=== PATIENT | female | born 1970 | race Caucasian/White ===

== ENCOUNTER → 2017-11-09 | Outpatient (CLI) | payer BC | LOC: MC.RAD 10-19 09:40 | DX: Z12.31 Encounter for screening mammogram for malignant neoplasm of breast (principal) ==

== ENCOUNTER → 2019-04-02 | Outpatient (CLI) | payer OTHER ==
[2019-04-02] VITALS (14 sets, daily range): BP systolic 120–140; BP diastolic 72–84; PULSE 87–98
[~2019-04-02] VITALS: Ht 162.6 cm; Wt 89.9 kg
[~2019-04-02] MED LIST: DESYREL 50MG50 MG PO; LEVOXYL0.025 MG PO; VITAMIN D31000 IU PO; ZOCOR 20MG20 MG PO; ZOLOFT 50MG50 MG PO
[2019-04-02 09:43] LABS: INR 1.1 (0.8-3.0)
--- NOTE | 2019-04-02 10:00 | NUR ---
pt to ct per ambulation. Pt positioned supine on CT table. Monitors applied. Warm blankets placed on pt.
--- NOTE | 2019-04-02 10:20 | NUR ---
pt having a lot of pain. Orders to give fent 25 mcg and versed 1 mg received.
--- NOTE | 2019-04-02 10:25 | NUR ---
Specimen obtained and placed in formalin by Dr Garcia. Specimen labeled.
--- NOTE | 2019-04-02 11:28 | NUR ---
Pt given sprite and muffin to eat. Tylenol also given. Pt reports pain at 6/10.
== END ==
LOC: COL.RAD 08:55
PROVIDERS: Internal Medicine
DX: R16.0 Hepatomegaly, not elsewhere classified (principal); C18.9 Malignant neoplasm of colon, unspecified
CPT/HCPCS: J2250; J3010

== ENCOUNTER → 2019-07-18 | Outpatient (CLI) | payer OTHER | LOC: MC.RAD 10:25 | DX: N63.10 Unspecified lump in the right breast, unspecified quadrant (principal) | CPT/HCPCS: G0279 ==

== ENCOUNTER → 2020-01-23 | Outpatient (CLI) | payer OTHER | LOC: MC.RAD 09:57 | DX: R92.0 Mammographic microcalcification found on diagnostic imaging of breast (principal) ==

== ENCOUNTER → 2020-01-24 | Outpatient (CLI) | payer BC | LOC: ZCOL.LAB 16:49 | DX: Z01.812 Encounter for preprocedural laboratory examination (principal); Z20.828 Contact with and (suspected) exposure to other viral communicable diseases ==

== ENCOUNTER → 2020-02-05 | Outpatient (CLI) | payer BC | LOC: MC.RAD 10:00 | DX: N64.9 Disorder of breast, unspecified (principal); Z98.82 Breast implant status ==